=== PATIENT | male | born 1975 | race Caucasian/White ===

== ENCOUNTER 2020-08-13 09:26 | Outpatient (CLI) | payer BC, SELFPAY ==
--- NOTE | ~2020-08-13 | MR_ITS ---
EXAMINATION: MR ankle LT wo con DATE: 08/13/2020 10:22 INDICATION: Left ankle pain TECHNIQUE: Magnetic resonance imaging (MRI) of the left ankle was performed without intravenous contr ast. Sequences included sagittal, coronal, and axial proton-density weighted fast spin echo without a nd with fat saturation. COMPARISON: None. FINDINGS: Medial ankle ligaments: There is thickening and loss of the normal well-defined striated appearance of the deep deltoid ligam ent along with a few tiny heterotopic ossicles along the ligament consistent with scarring related to chronic sprain. The superficial deltoid ligament remains normal. There is mild thickening of the sup eromedial component of the spring ligament complex without surrounding edema consistent with addition al scarring related to chronic sprain. The medial plantar oblique and infra plantar and lateral compo nents of the spring ligament complex remain normal. Lateral ankle ligaments: The anterior and posterior inferior tibiofibular ligaments are normal. The anterior talofibular, calc aneofibular and posterior talofibular ligaments are normal. Tendons: Achilles tendinosis with full-thickness tear measuring 5.5 cm from the distal calcaneal insertion. Th ere is some retraction of the torn tendon however the tear margins are relatively ragged with lax and frayed tendon material extending for approximately 5 cm precluding precise quantitative determinatio n of retraction. The degree of retraction is estimated at 1-2 cm. The peroneus longus and brevis tend ons are normal. The tibialis anterior and extensor hallucis longus and extensor digitorum longus tend ons are normal. The tibialis posterior, flexor digitorum longus and flexor hallucis longus tendons ar e normal. Plantar fascia: Plantar aponeurosis is normal. Bones/other: Mild osteoarthritis at the ankle with mild partial thickness cartilage loss anteriorly along with tin y marginal osteophytes. Small focus of subarticular edema along the anterior rim of the tibial plafon d. Additional mild osteoarthritis at the calcaneocuboid and the second and third tarsal metatarsal davis ints. Minimal cystic change at the medial and lateral margins of the calcaneal insertion of the Achil les tendon. Marrow signal is otherwise normal. No fracture or pathologic marrow replacing process. Fluid: Small amount of fluid along the tibialis posterior tendon and at the master knot of Julio consistent with mild tenosynovitis. No joint effusions or other abnormal fluid collections. There is diffuse sub cutaneous edema about the ankle and dorsum of the mid and forefoot. IMPRESSION: 1. Tendinosis and full-thickness tear of the Achilles tendon dictated 5.5 cm from the calcaneal inser tion. 2. Mild tenosynovitis along the tibialis posterior tendon and at the master knot of Julio. 3. Scarring consistent with chronic sprains of the deep deltoid ligament and superomedial component o f the spring ligament complex. 4. 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 Reviewed, dictated and finalized at location A. IMPRESSION: 1. Tendinosis and full-thickness tear of the Achilles tendon dictated 5.5 cm fr om the calcaneal insertion. 2. Mild tenosynovitis along the tibialis posterior tendon and at the master kno t of Julio. 3. Scarring consistent with chronic sprains of the deep deltoid ligament and rincon peromedial component of the spring ligament complex. 4. 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
== END 2020-08-13 09:27 | disposition home or self-care (01) ==
LOC: ANHIMG 09:28
PROVIDERS: Visit Provider Physician Assistant Surgical
DX: S86.012A Strain of left Achilles tendon, initial encounter (principal); M19.072 Primary osteoarthritis, left ankle and foot
CPT/HCPCS: 73721

== ENCOUNTER 2024-11-21 08:13 | Emergency (ER) | payer OTHER, SELFPAY ==
--- NOTE | 2024-11-21 08:17 | ED.GENADULT ---
HPI - General Adult General Chief complaint: Upper Respiratory Infection Stated complaint: body aches Time Seen by Provider: 11/21/24 08:16 Source: patient Mode of arrival: ambulatory Limitations: no limitations History of Present Illness HPI narrative: Pt is a 49 y/o male presenting with c/o boydaches. Additional sx reported include fatigue. Sx began on November 11, shortly after returning home from vacation. He reports sx resolved on 11/14 and then same sx returned on 11/16. No known exposure to COVID, Flu, strep, pneumonia. treatment initiated prior to arrival include ibuprofen. patient states it's definitely viral. No additional complaints. Related Data Home Medications ?Medication ?Instructions ?Recorded ?Confirmed ?Last Taken ?Type No Home Medications 11/21/24 11/21/24 Unknown History Allergies Allergy/AdvReac Type Severity Reaction Status Date / Time No Known Allergies Allergy Verified 11/21/24 08:31 Review of Systems Review of Systems: CONSTITUTIONAL: Reports body aches, denies fever, chills, or sweats. EYES: Denies visual changes, redness, or discharge. ENT: Denies rhinorrhea, congestion, sore throat, or otalgia. CARDIOVASCULAR: Denies chest pain, palpitations, or edema. RESPIRATORY: Denies cough or dyspnea. GASTROINTESTINAL: Denies abdominal pain, nausea, vomiting, or diarrhea. GENITOURINARY: Denies dysuria or hematuria. SKIN: Denies rash, itching, or wounds. MUSCULOSKELETAL: Denies back pain, joint pain, or myalgia. NEUROLOGIC: Denies headache, numbness, tingling, or weakness. PSYCH: Denies depression or anxiety. All systems reviewed & are unremarkable except as noted in HPI and below Exam Narrative: GENERAL: Well-appearing, well-nourished, and in no acute distress. HEAD: Normocephalic, atraumatic. EYES: EOMI. No redness or drainage. Conjunctivae normal. ENT: Mucous membranes pink and moist. Nares clear. No rhinorrhea. TMs normal bilaterally. Throat normal. Uvula midline. NECK: Normal AROM. Supple. No lymphadenopathy. CHEST: No respiratory distress. Clear to auscultation. HEART: Regular rate and rhythm. No murmur appreciated. Normal peripheral pulses. ABDOMEN: Soft, nontender, nondistended, normal active bowel sounds. MUSCULOSKELETAL: No bony tenderness. EXTREMITIES: Normal range of motion. No edema. SKIN: Warm, dry, no rash. Capillary refill normal. Normal skin turgor. NEURO: No focal deficits. Alert and oriented x3. Gait steady. PSYCH: Normal affect. No signs of depression or anxiety. HENMT: Face and sinus: normal facial exam and sinuses nontender Course Course Level of Care: Express Care Visit Vital Signs Vital signs: Vital Signs Temperature 98 F 11/21/24 08:30 Pulse Rate 95 11/21/24 08:30 Respiratory Rate 16 11/21/24 08:30 Blood Pressure 126/89 11/21/24 08:30 Pulse Oximetry 99 11/21/24 08:30 Temperature 98 F 11/21/24 08:30 Pulse Rate 95 11/21/24 08:30 Respiratory Rate 16 11/21/24 08:30 Blood Pressure 126/89 11/21/24 08:30 Pulse Oximetry 99 11/21/24 08:30 Medical Decision Making Vital Signs Vital Signs: Vital Signs Temperature 98 F 11/21/24 08:30 Pulse Rate 95 11/21/24 08:30 Respiratory Rate 16 11/21/24 08:30 Blood Pressure 126/89 11/21/24 08:30 Pulse Oximetry 99 11/21/24 08:30 Temperature 98 F 11/21/24 08:30 Pulse Rate 95 11/21/24 08:30 Respiratory Rate 16 11/21/24 08:30 Blood Pressure 126/89 11/21/24 08:30 Pulse Oximetry 99 11/21/24 08:30 Discharge Plan Discharge Clinical Impression: Upper respiratory infection Qualifiers: URI type: unspecified viral URI Qualified Code(s): J06.9 - Acute upper respiratory infection, unspecified Patient Disposition: Home Condition: Stable Instructions: Cold Symptoms (ED) Additional Instructions: Go straight to ER should your symptoms become worse or should any new symptoms develop Patient Language: Tunisian Prescriptions: No Action No Home Medications Follow-up/Referrals: Christiano Carrillo MD [Primary Care Provider] - 11/22/24 Time of Disposition: 08:33
[2024-11-21 08:30] VITALS: BP 126/89; PULSE 95; RESP 16; TEMP 36.6; O2SAT 99
== END 2024-11-21 08:36 | disposition home or self-care (01) ==
PROVIDERS: Emergency Provider Registered Nurse; PCP Emergency Medicine
DX: J06.9 Acute upper respiratory infection, unspecified (principal)
CPT/HCPCS: 99202; G0463